=== PATIENT | female | born 1970 | race Caucasian/White ===

== ENCOUNTER 2019-01-23 18:47 | Emergency (ER) | payer MEDICAID ==
[~2019-01-23] VITALS: Ht 167.6 cm; Wt 90.6 kg
[2019-01-23 18:56] VITALS: Ht 167.6 cm; Wt 90.6 kg
--- NOTE | 2019-01-23 22:58 | ERD ---
ER Documentation Chief Complaint Chief Complaint flu-liked symptoms (R earache,fever,achy throat) x 3days HPI 48-year-old female, presents the emergency department, complaining of 3 days with fever, T-max 101.3, associated with right ear pain, sore throat and general malaise. She denies shortness of breath, no chest pain, no rashes, no abdominal. ROS All systems reviewed and are negative except as per history of present illness. Allergies Allergies: Coded Allergies: No Known Allergy (Verified Allergy, Unknown, 07/30/07) Physical Exam Vitals Vital Signs Date Temp Pulse Resp B/P (MAP) Pulse Ox O2 O2 Flow FiO2 Time Delivery Rate 01/23/19 101.3 105 18 125/77 96 18:56 (93) Physical Exam Patient is in moderate distress due to cough and fever, vital signs showed fever. EYES: PERRLA, EOMI, injected sclerae EARS: Canals clear, erythematous tympanic membranes THROAT: Erythematous oropharynx. NECK: Supple, No lymphadenopathy. Full ROM without pain or tenderness. HEART: RRR, no rubs, murmurs, clicks or gallops. LUNGS: Bilateral rhonchi to auscultation. ABDOMEN: Soft, non-tender without masses or hepatosplenomegaly. EXTREMITIES: No edema bilaterally. BACK: Full ROM, no deformity, normal back exam NEURO: Cranial nerves grossly intact, no motor or sensory deficit Results 24 hrs Current Medications Medications Dose Sig/Moraima Start Time Status Last (Trade) Ordered Route PRN Stop Time Admin Dose Reason Admin Ibuprofen 600 mg ONCE ONCE 01/23/19 DC 01/23/19 (Motrin) PO 23:30 23:21 01/23/19 23:31 650 mg ONCE ONCE 01/23/19 DC 01/23/19 Acetaminophen PO 23:30 23:20 (Tylenol 01/23/19 23:31 Tab) Procedures/MDM At the time of discharge, patient with nontoxic appearance, vital signs stable, no respiratory distress. Differential diagnosis include but not limited to: upper vs lower respiratory infection bacterial/viral/fungal. Asthma, COPD, pneumonitis, allergies, GERD. Less likely pulmonary embolism, cardiac related or malignancy, but still is a possibility. Physical examination and clinical presentation consistent most likely with viral infection with early superimposed bacterial infection. During the ED course the patient remained stable, no new complaints. Treatment options and clinical impression discussed with the patient who agrees with management. The patient is stable to be treated outpatient and will be discharged home. Some side effects of prescribed medications (headache, rash, nausea, vomiting, diarrhea, interactions with other medications) were reviewed. The patient needs to follow up with the primary care provider in the next 48h. If symptoms persist, worsen or new symptoms develop, then patient should return to the ED immediately. Disclaimer: Inadvertent spelling and grammatical errors are likely due to EHR/dictation software use and do not reflect on the overall quality of patient care. Also, please note that the electronic time recorded on this note does not necessarily reflect the actual time of the patient encounter. Departure Diagnosis: Primary Impression: Fever Additional Impression: Cough Condition: Stable Additional Instructions: Muchas louisa por [facility] para ferguson servicio. Esperamos que en ferguson visita a la carlee de emergencia ferguson problema medico haya sido solucionado y que se sienta mucho mejor. Para estar seguros que ferguson mejoria sigue en proceso, le pedimos el favor de hacer chanell ina de seguimiento medico con ferguson doctor primario en los proximos 2-4 hall. Lleve con usted estos documentos y las medicinas recetadas. Si uriah sintomas empeoran, NO SE ESPERE, por favor regrese a carlee de emergencia INMEDIATAMENTE. En bhaskar que usted no tenga un mdico de atencin primaria: Llame al mdico o clnica comunitaria de referencia que aparece abajo misti las horas de consultorio para hacer chanell ina para que le vean. CLINICAS: [facility] [phone] [address] [facility] [phone] [facility] [phone] [facility] [phone] [facility] [phone] [facility]. [phone] UMER GEE MD Jan 23, 2019 22:58
[2019-01-23] MEDS ORDERED: IBUPROFEN 600 MG TAB PO ONE (23:30)
[2019-01-23] MEDS ORDERED: ACETAMINOPHEN 325 MG TAB PO ONE (23:30)
[2019-01-23] MEDS ORDERED: AMOX500C2 PO (23:42)
[2019-01-23] MEDS ORDERED: IBUP-1542 PO (23:42)
[2019-01-23] MEDS ORDERED: AZIT250T PO (23:42)
[2019-01-23] MEDS ORDERED: PROM5SYR2 PO (23:42)
[2019-01-23 23:55] VITALS: BP 135/63; PULSE 92; RESP 16
== END 2019-01-23 23:55 | disposition home or self-care (01) ==
LOC: FTE 18:47
DX: R50.9 Fever, unspecified (principal); R05 Cough
CPT/HCPCS: Z7610 ×2; 99283